=== PATIENT | male | born 1970 | race Caucasian/White ===

== ENCOUNTER → 2016-07-19 | Outpatient (CLI) | payer OTHER ==
[2016-07-19 08:55] LABS: ALT/SGPT 13 U/L (12-78); AST/SGOT 16 U/L (15-37); BLOOD UREA NITROGEN 7 mg/dl (7-18); BUN/CREATININE RATIO 10.8 (10-20); CALCIUM 8.1 mg/dl (8.5-10.1); CARBON DIOXIDE 33 mmol/L (21-32); CHLORIDE 104 mmol/L (98-107); CREATININE 0.67 mg/dl (0.60-1.40); GLUCOSE 72 mg/dl (70-99); POTASSIUM 4.4 mmol/L (3.5-5.1); SODIUM 139 mmol/L (136-145)
[2016-07-19 08:58] LABS: ALB/GLOB RATIO 1.4 (0.9-2); ALKALINE PHOSPHATASE 90 U/L (45-117)
== END | disposition home or self-care (01) ==
LOC: C.LABSPEC 08:38
PROVIDERS: ATTEND Nurse Practitioner Adult Health
DX: Z01.89 Encounter for other specified special examinations (principal)

== ENCOUNTER → 2016-07-25 | Outpatient (CLI) | payer OTHER ==
[2016-07-25 10:57] LABS: BLOOD UREA NITROGEN 4 mg/dl (7-18); BUN/CREATININE RATIO 7.3 (10-20); CALCIUM 8.8 mg/dl (8.5-10.1); CARBON DIOXIDE 32 mmol/L (21-32); CHLORIDE 102 mmol/L (98-107); CREATININE 0.57 mg/dl (0.60-1.40); GLUCOSE 77 mg/dl (70-99); POTASSIUM 4.4 mmol/L (3.5-5.1); SODIUM 139 mmol/L (136-145)
== END | disposition home or self-care (01) ==
LOC: C.LABSPEC 10:38
PROVIDERS: ATTEND Physician Assistant Medical
DX: Z01.89 Encounter for other specified special examinations (principal)

== ENCOUNTER → 2016-07-26 | Outpatient (CLI) | payer OTHER ==
[2016-07-26 06:16] LABS: BLOOD UREA NITROGEN 12 mg/dl (7-18); BUN/CREATININE RATIO 17.1 (10-20); CALCIUM 8.7 mg/dl (8.5-10.1); CARBON DIOXIDE 36 mmol/L (21-32); CHLORIDE 100 mmol/L (98-107); CREATININE 0.71 mg/dl (0.60-1.40); GLUCOSE 75 mg/dl (70-99); POTASSIUM 4.6 mmol/L (3.5-5.1); SODIUM 139 mmol/L (136-145)
== END ==
LOC: C.LABSPEC 04:30
DX: Z01.89 Encounter for other specified special examinations (principal)

== ENCOUNTER → 2016-11-04 | Outpatient (CLI) | payer OTHER ==
[2016-11-04 17:07] LABS: ALB/GLOB RATIO 1.4 (0.9-2); ALKALINE PHOSPHATASE 98 U/L (45-117); ALT/SGPT 18 U/L (12-78); AST/SGOT 27 U/L (15-37); BLOOD UREA NITROGEN 8 mg/dl (7-18); BUN/CREATININE RATIO 11.6 (10-20); CALCIUM 8.4 mg/dl (8.5-10.1); CARBON DIOXIDE 28 mmol/L (21-32); CHLORIDE 86 mmol/L (98-107); CREATININE 0.67 mg/dl (0.60-1.40); GLUCOSE 77 mg/dl (70-99); POTASSIUM 4.4 mmol/L (3.5-5.1); SODIUM 122 mmol/L (136-145)
== END ==
LOC: C.LABSPEC 11:06
DX: E87.1 Hypo-osmolality and hyponatremia (principal)

== ENCOUNTER → 2017-08-02 | Day surgery (SDC) | payer OTHER ==
[2017-07-31 12:12] VITALS: BMI 23.0
[~2017-08-02] VITALS: Ht 160 cm; Wt 59.5 kg
[~2017-08-02] MED LIST: ALBUT/IPRATROP 3MG/0.5MG NEB 3 ML VIAL INH ONE; ALUMSUS21 PO; ANSHCCR/ TOP; BACL10TA PO; CHOL400C10 PO; CICL160A INH; DEXAMETHASONE SOD INJ 4 MG/ML VIAL ONE; DXP/75 PO; FENTANYL CITRATE INJ 50 MCG/1 ML 2 ML VIAL ONE; FLUMAZENIL 0.1 MG/1 ML 10 ML VIAL IV ONE; FLUT1SPR12; LACTATED RINGER'S 1000ML 1,000 ML IV SCH; LEVA45AE INH; LIDOCAINE HCL 2% 2 ML VIAL (20MG/ML) ONE; MIDAZOLAM HCL 1 MG/ML 2ML VIAL ONE; OMEP40CA41 PO; ONDANSETRON INJ 2 MG/ML 2 ML VIAL ONE; PARO10TA4 PO; PERP1TAB5 PO; PROPOFOL IV EMULSION 10 MG/ML 20 ML VIAL ONE; SDMC1 PO
--- NOTE | 2017-08-02 06:12 | History and Physical ---
History & Physical Date of Service August 02, 2017. History & Physical 46-year-old male here for EBUS/flexible bronchoscopic evaluation chronic cough , abnormal weight loss and abnormal CT of the chest: This is a 46-year-old male with chronic history of smoking approximately 37 pack year history. He currently continues to smoke and is noted unintentional weight loss with associated cough. The patient was sent to [facility] for workup with CT imaging of the chest on 05/27/2017 notable for abnormal pulmonary findings for impression see below. Patient also notes a chronic history of rhinitis and throat clearing associated with coughing. Patient currently denies : Fever, chills, B type symptoms, pleurisy, classic cardiac chest pain or hemoptysis. CT chest 05/27/2017 -small cystic changes bilaterally -nodules verses thick-walled cyst right middle lobe -diffuse ground-glass changes largest region within the lingula -mediastinum: Paratracheal adenopathy(per my view appears to have calcification) , right hilar adenopathy Spirometry 05/06/2017 --mild obstructive ventilatory disease with an FEV1 of 80% Shelter Contact Alex: [phone] Review of Systems Constitutional: as noted in HPI. Eyes: negative. Cardiovascular: negative. Respiratory: as noted in HPI. Gastrointestinal: negative. Genitourinary: negative. Musculoskeletal: negative. Integumentary: negative. Neurological: negative. Psychiatric: negative. Hematologic/Lymphatic: negative. Chemistry panel 11/04/2016 Sodium: 122 Chloride: 86 BUN: 8 Creatinine: 0.67 Calcium: 8.4 Total protein 6.3 PmHx: 1. Vitamin-D deficiency 2. Nicotine dependence 3. Major depressive disorder 4. Psychotic features 5. Mild COPD 6. GERD PsHx: Per the patient none Allergies -Selenium sulfide Social -tobacco: Chronic tobacco use currently smoking 36 pack-year history Family history -mother: lung cancer Current Meds 1. Ferrous Sulfate 325 (65 Fe) MG Oral Tablet; TAKE 1 TABLET TWICE DAILY; 2. Gaviscon 80-14.2 MG Oral Tablet Chewable; TAKE DIRECTED; 3. PARoxetine HCl - 10 MG Oral Tablet; TAKE 1 AND 1/2 TABLETS DAILY; 4. Perphenazine 4 MG Oral Tablet; TAKE 1 TABLET 3 TIMES DAILY; 5. Sodium Chloride 1 GM Oral Tablet; USE DIRECTED; 6. TraZODone HCl - 50 MG Oral Tablet; TAKE ONE OR TWO TABLETS BY MOUTH AT BEDTIME 7. Vitamin D3 1000 UNIT Oral Capsule; TAKE 1 CAPSULE Daily; 8. Xopenex HFA 45 MCG/ACT Inhalation Aerosol; INHALE 2 PUFFS EVERY 4 HOURS NEEDED Allergies 1. Selenium Sulfide Powder Vitals Height: 5 ft 6 in Weight: 136 lb 2 oz BMI Calculated: 21.97 BSA Calculated: 1.7 Respiration: 13 Temperature: 97.9 F Heart Rate: 76 O2 Saturation: 97, RA Blood Pressure: 122 / 76, RUE, Sitting Constitutional General appearance: Abnormal. Thin male but no apparent distress. Eyes Conjunctiva and lids: No swelling, erythema, or discharge. Pupils and irises: Equal, round and reactive to light. Ears, Nose, Mouth, and Throat External inspection of ears and nose: Normal. Otoscopic examination: Tympanic membrance translucent with normal light reflex. Canals patent without erythema. Oropharynx: Normal with no erythema, edema, exudate or lesions. Pulmonary Respiratory effort: No increased work of breathing or signs of respiratory distress. Auscultation of lungs: Clear to auscultation. Cardiovascular Palpation of heart: Normal PMI, no thrills. Auscultation of heart: Normal rate and rhythm, normal S1 and S2, without murmurs. Examination of extremities for edema and/or varicosities: Normal. Abdomen Abdomen: Non-tender, no masses. Liver and spleen: No hepatomegaly or splenomegaly. Lymphatic Palpation of lymph nodes in neck: No lymphadenopathy. Musculoskeletal Gait and station: Normal. Digits and nails: Normal without clubbing or cyanosis. Inspection/palpation of joints, bones, and muscles: Normal. Skin Skin and subcutaneous tissue: Normal without rashes or lesions. Neurologic Cranial nerves: Cranial nerves 2-12 intact. Reflexes: 2+ and symmetric. Sensation: No sensory loss. Psychiatric Orientation to person, place and time: Normal. Mood and affect: Normal.
[2017-08-02 10:21] VITALS: BP 129/87; PULSE 72; TEMP 36.9; O2SAT 95; Ht 160 cm; Wt 59.5 kg
[2017-08-02 10:57] VITALS: PULSE 74; O2SAT 93
--- NOTE | 2017-08-02 11:10 | History & Physical Bridge Note ---
H&P Re-Evaluation Bridge Note: I have examined the patient, reviewed the History & Physical and in the interval since the performance of the History & Physical I have noted the following changes of clinical significance: No changes noted
--- NOTE | 2017-08-02 13:15 | Bronchoscopy Procedure Note ---
Bronchoscopy Procedure Note Procedure: Flexible-Bronchoscopy, EBUS, ENB, FNA, BAL Consent: Obtained through the patient placed into the chart Pre-Procedural Dx: Right upper lobe bronchiectasis with mediastinal adenopathy Post-Procedural Dx: Right upper lobe bronchiectasis with mediastinal adenopathy Analgesia: GETA Sedation: GETA Procedure: The Olympus video bronchoscope and EBUS scope were used for this procedure Initially the flexible bronchoscope was used for evaluation of the airways. The initially use a size 4 LMA but due to poor ventilation switch ET tube was notably 5cm above the level of the sebas. Trachea: Visualized portion of the trachea was anatomically within normal limits Sebas: Anatomically within normal limits Right bronchial tree: Right mainstem bronchus: Anatomically within normal limits Right upper lobe: Anatomically within normal limits, minimal mucus secretions noted coming from the anterior subsegment of the right upper lobe Bronchus intermedius: Anatomically within normal limits Right middle lobe: Anatomically within normal limits Right lower lobe: Anatomically within normal limits Findings: No significant findings noted Left bronchial tree: Left mainstem bronchus: Anatomically within normal limits Left upper lobe: Anatomically within normal limits Lingula: Anatomically within normal limits Left lower lobe: Anatomically within normal limits Findings: No significant findings noted EBUS/CHINO: FNA Mary Stations: 7, 4R, 4L, 11R BAL: Right upper lobe and left upper lobe EBL: 4cc Complications: None Follow-up: PACU
--- NOTE | 2017-08-02 14:11 | Discharge Instructions ---
Discharge Instructions Date of Service August 02, 2017. Admission Reason for Admission: Mediastinal Adenopathy, Abnormal Ct Scan Of Lung Discharge Discharge Diagnosis / Problem: Bronchiectasis with mediastinal adenopathy-- cytologic evaluation of the med Discharge Goals Goal(s): Diagnostic testing Activity Recommendations Activity Limitations: resume your previous activity Exercise/Sports Limitations: as tolerated Driving or Machine Use: resume 1 day after discharge . Instructions / Follow-Up Instructions / Follow-Up Follow-up with Dr. Denys Zavala at the [facility] in the next 2-3 weeks Current Hospital Diet Patient's current hospital diet: Discharge Diet Recommended Diet: Regular Diet Procedures Procedures Performed: Endobronchial Ultrasound Guided Bronchoscopy; Bronchial Washing x2; Flexible Bronchoscopy; Fine needle aspirations Pending Studies Studies pending at discharge: no Medical Emergencies . Who to Call and When: Medical Emergencies: If at any time you feel your situation is an emergency, please call 911 immediately. . Non-Emergent Contact Non-Emergency issues call your: Product Marketing Analyst Call Non-Emergent contact if: you have a fever, temperature is above 101 . . "Provider Documentation" section prepared by Denys Zavala. .
--- NOTE | 2017-08-02 14:53 | Anesthesiology Progress Note ---
Anesthesia Post Op Note Date & Time August 02, 2017 at 14:53 Vital Signs Pain Intensity: 0 Vital Signs Past 12 Hours Date Time Temp Pulse Resp B/P (MAP) Pulse Ox O2 Delivery O2 Flow Rate FiO2 08/02/17 14:49 36.4 08/02/17 14:40 94 16 118/92 93 Oxymask 5 08/02/17 14:30 94 16 132/84 93 Oxymask 5 08/02/17 14:20 95 16 109/86 98 Oxymask 10 08/02/17 14:10 96 16 126/86 98 Oxymask 10 08/02/17 14:00 91 16 137/93 96 Oxymask 10 08/02/17 13:52 36.8 93 16 107/89 97 Oxymask 10 08/02/17 10:57 74 16 93 Room Air 08/02/17 10:21 36.9 72 18 129/87 (101) 95 Room Air Notes Mental Status: alert / awake / arousable, participated in evaluation Pt Amnestic to Procedure: Yes Nausea / Vomiting: adequately controlled Pain: adequately controlled Airway Patency, RR, SpO2: stable & adequate BP & HR: stable & adequate Hydration State: stable & adequate Anesthetic Complications: no major complications apparent
[2017-08-02 15:00] VITALS: BP 120/80; PULSE 87; TEMP 36.8; O2SAT 93
[2017-08-02 15:30] VITALS: BP 125/97; PULSE 96; TEMP 36.8; O2SAT 95
== END | disposition home or self-care (01) ==
LOC: C.ACU 10:01
PROVIDERS: ATTEND Internal Medicine Critical Care Medicine
DX: J47.9 Bronchiectasis, uncomplicated (principal); R59.0 Localized enlarged lymph nodes; R63.4 Abnormal weight loss; F17.200 Nicotine dependence, unspecified, uncomplicated; K21.9 Gastro-esophageal reflux disease without esophagitis; Z79.899 Other long term (current) drug therapy; F32.9 Major depressive disorder, single episode, unspecified

== ENCOUNTER → 2017-10-08 | Outpatient (CLI) | payer OTHER ==
[~2017-10-08] MED LIST changes: -ALBUT/IPRATROP 3MG/0.5MG NEB 3 ML VIAL INH ONE; +ALUMSUS PO; -ALUMSUS21 PO; -ANSHCCR/ TOP; -BACL10TA PO; -CHOL400C10 PO; -DEXAMETHASONE SOD INJ 4 MG/ML VIAL ONE; +DOXE100C4 PO; -DXP/75 PO; -FENTANYL CITRATE INJ 50 MCG/1 ML 2 ML VIAL ONE; -FLUMAZENIL 0.1 MG/1 ML 10 ML VIAL IV ONE; -LACTATED RINGER'S 1000ML 1,000 ML IV SCH; -LIDOCAINE HCL 2% 2 ML VIAL (20MG/ML) ONE; -MIDAZOLAM HCL 1 MG/ML 2ML VIAL ONE; -ONDANSETRON INJ 2 MG/ML 2 ML VIAL ONE; -PARO10TA4 PO; +PERP1TAB PO; -PERP1TAB5 PO; -PROPOFOL IV EMULSION 10 MG/ML 20 ML VIAL ONE; +SNQ/25 PO
[2017-10-08 09:41] LABS: BLOOD UREA NITROGEN 6 mg/dl (7-18); CALCIUM 8.3 mg/dl (8.5-10.1); CARBON DIOXIDE 29 mmol/L (21-32); CREATININE 0.59 mg/dl (0.60-1.40); GLUCOSE 92 mg/dl (70-99); SODIUM 121 mmol/L (136-145)
--- NOTE | 2017-10-27 12:55 | CODING QUERY NO DIAGNOSIS ---
TREATMENT RENDERED WITHOUT A DIAGNOSIS To promote full compliance with coding requirements relating to patient care, physician participation is requested in all cases of data coder operator uncertainty. Please assist us with providing a diagnosis/symptom for the test(s) below: A diagnosis/symptom was not documented on your Order. A valid diagnosis/symptom is required to bill all insurances. Please remember that we are unable to code a diagnosis of rule out, probable, possible, questionable, or suspected. Tests that require a diagnosis: DOS: 10/08/17 * PARTIAL RENAL PROFILE DIAGNOSIS: Provider Signature: Date: Thank you Hazel Hernandez [employer] Once completed, please kindly fax back to [phone] For questions please call [phone]
== END ==
LOC: C.LABSPEC 09:18
DX: Z01.89 Encounter for other specified special examinations (principal)

== ENCOUNTER → 2017-10-09 | Outpatient (CLI) | payer OTHER ==
[2017-10-09 10:15] LABS: BLOOD UREA NITROGEN 7 mg/dl (7-18); CALCIUM 8.4 mg/dl (8.5-10.1); CARBON DIOXIDE 31 mmol/L (21-32); GLUCOSE 86 mg/dl (70-99); POTASSIUM 4.5 mmol/L (3.5-5.1); SODIUM 126 mmol/L (136-145)
== END | disposition home or self-care (01) ==
LOC: C.LABSPEC 09:18
DX: Z01.89 Encounter for other specified special examinations (principal)

== ENCOUNTER 2017-10-25 11:13 | Emergency (ER) | payer OTHER ==
[~2017-10-25] VITALS: Ht 160 cm; Wt 59.9 kg
[2017-10-25 11:15] VITALS: TEMP 36.5; Ht 160 cm; Wt 59.9 kg
[2017-10-25 11:43] VITALS: O2SAT 95
--- NOTE | 2017-10-25 11:48 | DIAGNOSTIC IMAGING REPORT ---
CHEST ONE VIEW PORTABLE CLINICAL HISTORY: Altered mental status. Weakness. COMPARISON STUDY: 09/11/2017 FINDINGS: The cardiac and mediastinal contours are normal. There is no evidence of focal pulmonary consolidation. There is no evidence of failure. No pleural effusions are visualized.[ IMPRESSION: No active disease in the chest. Electronically signed by: Jamey Mar M.D. 10/25/2017 11:47 AM Dictated Date/Time: 10/25/2017 11:47 AM
[2017-10-25 11:49] LABS: BASO % 0.2 %; BASO ABS # 0.01 K/uL (0-0.2); EOS % 4.1 %; HEMATOCRIT 39.8 % (42-52); HEMOGLOBIN 14.3 g/dL (14.0-18.0); IG# 0.01 K/uL (0.00-0.02); LYMPH % 29.9 %; LYMPH ABS # 1.44 K/uL (1.2-3.4); MEAN CELL VOLUME 95.9 fL (80-100); MEAN CORPUSCULAR HEMOGLOBIN 34.5 pg (25-34); MEAN CORPUSCULAR HGB CONC 35.9 g/dl (32-36); MEAN PLATELET VOLUME 8.2 fL (7.4-10.4); MONO % 8.1 %; MONO ABS # 0.39 K/uL (0.11-0.59); NEUT % 57.5 %; NEUT ABS # 2.77 K/uL (1.4-6.5); PLATELET COUNT 243 K/uL (130-400); RED CELL DISTRIBUTION WIDTH CV 12.3 % (11.5-14.5); RED CELL DISTRIBUTION WIDTH SD 42.9 fL (36.4-46.3); WHITE BLOOD COUNT 4.82 K/uL (4.8-10.8)
[2017-10-25 11:58] LABS: PTT PATIENT 29.8 SECONDS (21.0-31.0)
[2017-10-25 12:15] LABS: ALBUMIN 4.5 gm/dl (3.4-5.0); ALKALINE PHOSPHATASE 97 U/L (45-117); ALT/SGPT 14 U/L (12-78); AST/SGOT 20 U/L (15-37); BLOOD UREA NITROGEN 6 mg/dl (7-18); CALCIUM 9.2 mg/dl (8.5-10.1); CARBON DIOXIDE 31 mmol/L (21-32); CKMB 2.6 ng/ml (0.5-3.6); CREATININE 0.69 mg/dl (0.60-1.40); GLUCOSE 78 mg/dl (70-99); LIPASE 77 U/L (73-393); SODIUM 128 mmol/L (136-145)
--- NOTE | 2017-10-25 13:57 | EMERGENCY ROOM VISIT NOTE ---
History Report prepared by Gaurav: Denys Veliz Under the Supervision of: Dr. Carlos Vargas D.O. First contact with patient: 11:31 Chief Complaint: OTHER COMPLAINT Stated Complaint: HYPONATREMIA History of Present Illness The patient is a 47 year old male who presents to the Emergency Room with complaints of intermittent hyponatremia that began yesterday after having blood work done. Patient states he has been experiencing weakness and "dizzy spells". He adds he does not know the reason for his symptoms. He states he feels good in the ER and denies any current dizziness. Source of History: patient Onset: Yesterday Position: other (Blood) Timing: intermittent Modifying Factors (Relieving): other (None) Associated Symptoms: + weakness Note: Negative dizziness. Review of Systems See HPI for pertinent positives & negatives. A total of 10 systems reviewed and were otherwise negative. Past Medical & Surgical Medical Problems: (1) Hyponatremia Family History Patient reports no known family medical history. Social History Smoking Status: Current Every Day Smoker Housing Status: other (Shelter) Current/Historical Medications Scheduled Doxepin (Sinequan), 25 MG PO HS Doxepin Hcl (Doxepin), 100 MG PO HS Fluticasone Propionate (Nasal) (Flonase Allergy Relief ), 1 SPRAY NA BID Omeprazole (Prilosec), 1 CAP PO QAM Perphenazine (Trilafon), 24 MG PO HS Scheduled PRN Aluminum Hydroxide-Mag Carb (Acid Gone), 2 TSP PO TID PRN for heart burn Levalbuterol Tartrate (Levalbuterol Tartrate Hfa), 2 PUFF INH QID PRN for SOB/ Wheezing Allergies Coded Allergies: Selenium Sulfide (Unverified Allergy, Unknown, unknow, 10/25/17) [facility] has selenium listed as an allergy but not the reaction Physical Exam Vital Signs Date Time Temp Pulse Resp B/P (MAP) Pulse Ox O2 Delivery O2 Flow Rate FiO2 10/25/17 13:31 76 18 115/86 100 Room Air 10/25/17 12:09 90 10/25/17 11:43 95 Room Air 10/25/17 11:15 36.5 88 17 142/92 98 Room Air Physical Exam CONSTITUTIONAL/VITAL SIGNS: Reviewed / noted above. GENERAL: Non-toxic in appearance. INTEGUMENTARY: Warm, dry, and [place]. HEAD: Normocephalic. EYES: without scleral icterus or trauma. ENT/OROPHARYNX: clear and moist. LYMPHADENOPATHY/NECK: Is supple without lymphadenopathy or meningismus. RESPIRATORY: Lungs clear and equal. CARDIOVASCULAR: Regular rate and rhythm. GI/ABDOMEN: Soft and nontender. No organomegaly or pulsatile mass. No rebound or guarding. Normal bowel sounds. EXTREMITIES: Warm and well perfused. BACK: No CVA tenderness. NEUROLOGICAL: Intact without focal deficits. PSYCHIATRIC: normal affect. MUSCULOSKELETAL: Normally developed with good muscle tone. Medical Decision & Procedures ER Provider Diagnostic Interpretation: Radiology results as stated below per my review and radiologist interpretation: CHEST ONE VIEW PORTABLE CLINICAL HISTORY: Altered mental status. Weakness. COMPARISON STUDY: 09/11/2017 FINDINGS: The cardiac and mediastinal contours are normal. There is no evidence of focal pulmonary consolidation. There is no evidence of failure. No pleural effusions are visualized.[ IMPRESSION: No active disease in the chest. Electronically signed by: Jamey Mar M.D. 10/25/2017 11:47 AM Laboratory Results 10/25/17 11:40 Red Blood Count 4.15, Mean Corpuscular Volume 95.9, Mean Corpuscular Hemoglobin 34.5, Mean Corpuscular Hemoglobin Concent 35.9, Mean Platelet Volume 8.2, Neutrophils (%) (Auto) 57.5, Lymphocytes (%) (Auto) 29.9, Monocytes (%) (Auto) 8.1, Eosinophils (%) (Auto) 4.1, Basophils (%) (Auto) 0.2, Neutrophils # (Auto) 2.77, Lymphocytes # (Auto) 1.44, Monocytes # (Auto) 0.39, Eosinophils # (Auto) 0.20, Basophils # (Auto) 0.01 10/25/17 11:40 Test 10/25/17 11:40 10/25/17 12:15 White Blood Count 4.82 K/uL (4.8-10.8) Red Blood Count 4.15 M/uL (4.7-6.1) Hemoglobin 14.3 g/dL (14.0-18.0) Hematocrit 39.8 % (42-52) Mean Corpuscular Volume 95.9 fL (80-100) Mean Corpuscular Hemoglobin 34.5 pg (25-34) Mean Corpuscular Hemoglobin Concent 35.9 g/dl (32-36) Platelet Count 243 K/uL (130-400) Mean Platelet Volume 8.2 fL (7.4-10.4) Neutrophils (%) (Auto) 57.5 % Lymphocytes (%) (Auto) 29.9 % Monocytes (%) (Auto) 8.1 % Eosinophils (%) (Auto) 4.1 % Basophils (%) (Auto) 0.2 % Neutrophils # (Auto) 2.77 K/uL (1.4-6.5) Lymphocytes # (Auto) 1.44 K/uL (1.2-3.4) Monocytes # (Auto) 0.39 K/uL (0.11-0.59) Eosinophils # (Auto) 0.20 K/uL (0-0.5) Basophils # (Auto) 0.01 K/uL (0-0.2) RDW Standard Deviation 42.9 fL (36.4-46.3) RDW Coefficient of Variation 12.3 % (11.5-14.5) Immature Granulocyte % (Auto) 0.2 % Immature Granulocyte # (Auto) 0.01 K/uL (0.00-0.02) Prothrombin Time 10.9 SECONDS (9.0-12.0) Prothromb Time International Ratio 1.0 (0.9-1.1) Activated Partial Thromboplast Time 29.8 SECONDS (21.0-31.0) Partial Thromboplastin Ratio 1.1 Anion Gap 5.0 mmol/L (3-11) Est Creatinine Clear Calc Drug Dose 106.5 ml/min Estimated GFR () 131.0 Estimated GFR (Non- 113.1 BUN/Creatinine Ratio 8.8 (10-20) Calcium Level 9.2 mg/dl (8.5-10.1) Magnesium Level 2.5 mg/dl (1.8-2.4) Total Bilirubin 0.4 mg/dl (0.2-1) Direct Bilirubin 0.2 mg/dl (0-0.2) Aspartate Amino Transf (AST/SGOT) 20 U/L (15-37) Alanine Aminotransferase (ALT/SGPT) 14 U/L (12-78) Alkaline Phosphatase 97 U/L (45-117) Total Creatine Kinase 125 U/L (39-308) Creatine Kinase MB 2.6 ng/ml (0.5-3.6) Creatine Kinase MB Ratio 2.1 (0-3.0) Troponin I < 0.015 ng/ml (0-0.045) Total Protein 8.0 gm/dl (6.4-8.2) Albumin 4.5 gm/dl (3.4-5.0) Lipase 77 U/L (73-393) Thyroid Stimulating Hormone (TSH) 0.400 uIu/ml (0.300-4.500) Urine Color YELLOW Urine Appearance CLEAR (CLEAR) Urine pH 7.5 (4.5-7.5) Urine Specific [place] 1.008 (1.000-1.030) Urine Protein NEG (NEG) Urine Glucose (UA) NEG (NEG) Urine Ketones NEG (NEG) Urine Occult Blood NEG (NEG) Urine Nitrite NEG (NEG) Urine Bilirubin NEG (NEG) Urine Urobilinogen NEG (NEG) Urine Leukocyte Esterase NEG (NEG) Urine WBC (Auto) /hpf (0-5) Urine RBC (Auto) /hpf (0-4) Urine Hyaline Casts (Auto) /lpf (0-5) Urine Epithelial Cells (Auto) /lpf (0-5) Urine Bacteria (Auto) (NEG) Urine RBC 0-4 /hpf (0-4) Urine WBC 0 /hpf (0-5) Urine Epithelial Cells 0-5 /lpf (0-5) Urine Bacteria NEG (NEG) Laboratory results as stated above per my review. ECG Per My Interpretation Indication: weakness Rate (beats per minute): 72 Rhythm: normal sinus Findings: no ectopy, other (No ST elevation) ED Course 1132: Previous medical records were reviewed. The patient was evaluated in room A4B. A complete history and physical examination was performed. 1359: On reevaluation, the patient is resting comfortably. I discussed the results and findings with the patient. He verbalized agreement of the treatment plan. He was discharged home. Medical Decision Differential includes acute coronary syndrome, myocardial infarction, CVA, TIA, anemia, infection, pneumonia, UTI, pyelonephritis, poor nutrition, dehydration, electrolyte disturbance,hypoglycemia. The patient presents with a chief complaint of an abnormal lab test result. The patient had reportedly gotten blood work yesterday and had a sodium of 119. Today he states that he feels fine and is asymptomatic. His sodium today is 128. CBC and metabolic panel was otherwise normal. Urine did not show infection. EKG showed normal sinus rhythm. His vital signs are normal. His exam was unremarkable. He is told the results. He is felt to be stable for discharge. Medication Reconcilliation Current Medication List: was personally reviewed by me Blood Pressure Screening Patient's blood pressure: Normal blood pressure Blood pressure disposition: Did not require urgent referral Impression Primary Impression: Hyponatremia Scribe Attestation The scribe's documentation has been prepared under my direction and personally reviewed by me in its entirety. I confirm that the note above accurately reflects all work, treatment, procedures, and medical decision making performed by me. Departure Information Dispostion Home / Self-Care Referrals Mendez HARVEY (PCP) Patient Instructions My [facility] Additional Instructions Your sodium level today is 128. This is similar to previous sodium levels. Follow-up with your doctor for further care and evaluation in 1-2 days. Return to the emergency department for worsening or new symptoms or any concerns. You have been examined and treated today on an emergency basis only. This is not a substitute for, or an effort to provide, complete comprehensive medical care. It is impossible to recognize and treat all injuries or illnesses in a single emergency department visit. It is therefore important that you follow up closely with your doctor. Call as soon as possible for an appointment.
[2017-10-25 14:15] VITALS: BP 126/96; PULSE 93; O2SAT 97
== END 2017-10-25 14:16 | disposition home or self-care (01) ==
LOC: C.EDB 11:15 → C.EDA 14:16
DX: E87.1 Hypo-osmolality and hyponatremia (principal); F17.200 Nicotine dependence, unspecified, uncomplicated